=== PATIENT | male | born 1945 | race Caucasian/White ===

== ENCOUNTER → 2017-06-20 | Outpatient (CLI) | payer MEDICARE ==
[2017-06-20 14:59] LABS: HEMOGLOBIN 16.1 g/dL (14.1-18.0); LYMPH % 24.9 % (10-50)
[2017-06-20 18:43] LABS: BUN 19 mg/dL (7-18)
[2017-06-20 19:09] LABS: GFR (ESTIMATED) 60 ML/MIN (>60)
== END ==
LOC: LAB 14:27
PROVIDERS: Surgery
DX: R13.10 Dysphagia, unspecified (principal); Z01.818 Encounter for other preprocedural examination

== ENCOUNTER 2017-08-03 07:24 | Day surgery (SDC) | payer MEDICARE ==
[~2017-08-03] VITALS: Ht 165.1 cm; Wt 74.8 kg
--- NOTE | 2017-08-03 08:13 | Operative Note ---
Surgeon/Diagnoses Surgeon/Mobile Service Rv Technician(s) Date of procedure: 08/03/17 Surgeon: MD Tanja Oseguera Diagnoses Pre-op diagnosis: Dysphagia Cricopharyngeal dysfunction Post-op diagnosis Same as preoperative diagnoses, with the addition of the following: Gastritis Small sliding hiatal hernia Procedure Procedure Procedure: Esophagogastroduodenoscopy with biopsy Indications: MAK ROBERTSON is a 71 year-old Male with a history of dysphasia and a barium swallow with changes consistent with possible cricopharyngeal dysfunction. Findings: Gastroesophageal junction at 40 cm Inflammatory changes at the gastroesophageal junction Patchy gastritis Procedure Description: After informed consent was obtained, the patient was taken to the endoscopy suite. Monitored anesthesia care ensued after he was transferred to the LEFT lateral decubitus position. The gastroscope was advanced. The gastroesophageal junction was 40 cm. Inflammation was noted and a biopsy was obtained at the time of gastroscope removal. The stomach was entered. Retroflexion revealed a small sliding hiatal hernia, but visualization was very difficult secondary to episodic coughing. Inflammatory changes were noted and antral biopsies were obtained. The pylorus was intubated. The duodenal mucosa appeared relatively normal. The gastroscope was carefully removed and the patient was transferred to recovery. Note: Significant episodic coughing made visualization very difficult throughout the procedure. EBL (ml): 1 Anesthesia: Monitored anesthesia care Complications: No immediate Specimens: Antral biopsies Gastroesophageal junction biopsy Disposition Disposition: Stable to recovery from where he will be discharged home. He will follow up in one week. at 0813
[2017-08-03 09:14] VITALS: BP 143/80
== END 2017-08-03 08:55 | disposition home or self-care (01) ==
LOC: SDC 07:24
PROVIDERS: Surgery
PROC: 0DB78ZX Excision of Stomach, Pylorus, Via Natural or Artificial Opening Endoscopic, Diagnostic (ICD-10-PCS; 2017-08-03)
PROC: 0DB48ZX Excision of Esophagogastric Junction, Via Natural or Artificial Opening Endoscopic, Diagnostic (ICD-10-PCS; principal; 2017-08-03 08:00)
DX: K29.70 Gastritis, unspecified, without bleeding (principal); K44.9 Diaphragmatic hernia without obstruction or gangrene; R13.10 Dysphagia, unspecified